=== PATIENT | female | born 1940 | race Two or more races ===

== ENCOUNTER 2022-07-22 05:46 | Day surgery (SDC) | payer OTHER ==
[~2022-07-22] VITALS: Ht 152.4 cm; Wt 68.9 kg
[~2022-07-22 05:46] MED LIST: CILOSTAZOL100 MG PO; DONEPEZIL HCL10 MG PO; HORIZANT300 MG PO; JANUVIA100 MG PO; PLAVIX75 MG PO; PRAVASTATIN SOD40 MG PO; TEMAZEPAM15 MG PO; TOPROL XL25 MG PO
== END 2022-07-22 12:35 | disposition home or self-care (01) ==
LOC: CIR.AMB 05:46
PROVIDERS: ATTEND Specialist
DX: L72.0 Epidermal cyst (principal); L72.8 Other follicular cysts of the skin and subcutaneous tissue; Z20.822 Contact with and (suspected) exposure to COVID-19; Z88.6 Allergy status to analgesic agent; I10 Essential (primary) hypertension; Z95.0 Presence of cardiac pacemaker; Z86.16 Personal history of COVID-19; E11.9 Type 2 diabetes mellitus without complications; Z79.84 Long term (current) use of oral hypoglycemic drugs